=== PATIENT | female | born 1975 | race Caucasian/White ===

== ENCOUNTER → 2016-06-09 | Outpatient (CLI) | payer OTHER ==
[~2016-06-09] MED LIST: COEN100C6 PO; HYDR-5688 PO; MAGN500T15 PO; NITR-5 PO; RIBO100T9 PO; TAMS0.4C38 PO; TOPI200T14 PO; TRAM-10 PO; imitrex PO
--- NOTE | 2016-06-09 15:35 | MAMMOGRAPHY REPORT ---
BILATERAL FIRST EVER DIGITAL SCREENING MAMMOGRAM TOMOSYNTHESIS WITH CAD: 06/09/2016 CLINICAL HISTORY: Routine screening. Baseline exam. TECHNIQUE: Breast tomosynthesis in addition to standard 2D mammography was performed. Current study was also evaluated with a Computer Aided Detection (CAD) system. COMPARISON: No prior exams were available for comparison. BREAST COMPOSITION: There are scattered areas of fibroglandular density in both breasts. FINDINGS: No suspicious masses, calcifications, or areas of architectural distortion are noted in e ither breast. IMPRESSION: ACR BI-RADS CATEGORY 1: NEGATIVE There is no mammographic evidence of malignancy. A 1 year screening mammogram is recommended. The p atient will receive written notification of the results. Approximately 10% of breast cancers are not detected with mammography. A negative mammographic repor t should not delay biopsy if a clinically suggestive mass is present. Yeny Fine M.D. /:06/09/2016 15:27:37 Hydrochloric Area Supervisor: Filomena FORTUNE)([place]), [facility] letter sent: Normal 1/2 BI-RADS Code: ACR BI-RADS Category 1: Negative
== END | disposition home or self-care (01) ==
LOC: C.MAMM 07:33
PROVIDERS: ATTEND Obstetrics & Gynecology
DX: Z12.31 Encounter for screening mammogram for malignant neoplasm of breast (principal)

== ENCOUNTER → 2016-10-06 | Outpatient (CLI) | payer OTHER ==
--- NOTE | 2016-10-06 09:41 | DIAGNOSTIC IMAGING REPORT ---
RIGHT ANKLE MIN 3 VIEWS ROUTINE CLINICAL HISTORY: Right ankle pain. Trauma. COMPARISON: None. DISCUSSION: No acute fractures or dislocations are visualized. There is a tiny corticated ossicle adjacent the medial malleolar tip. This is felt to be old. There is a small plantar calcaneal spur. IMPRESSION: No acute fractures or dislocations identified. Electronically signed by: Jacques White M.D. 10/06/2016 9:40 AM Dictated Date/Time: 10/06/2016 9:39 AM
== END | disposition home or self-care (01) ==
LOC: C.RAD1850 09:23
PROVIDERS: ATTEND Internal Medicine
DX: M25.571 Pain in right ankle and joints of right foot (principal); G89.29 Other chronic pain

== ENCOUNTER 2017-01-22 10:48 | Emergency (ER) | payer OTHER ==
[2016-01-25 16:54] VITALS: O2SAT 100
[~2017-01-22] VITALS: Ht 157.5 cm; Wt 105.1 kg
[~2017-01-22 10:48] MED LIST changes: -HYDR-5688 PO; -NITR-5 PO; -TAMS0.4C38 PO; -TRAM-10 PO
[2017-01-22 10:49] VITALS: Ht 157.5 cm; Wt 105.1 kg
[2017-01-22] MEDS ORDERED: KETOROLAC TROMETHAMINE 30 MG/ML VIAL IV STA (11:11)
[2017-01-22] MEDS ORDERED: ACETAMINOPHEN 500 MG TAB PO STA (11:11)
[2017-01-22] MEDS ORDERED: TRAMADOL HCL 50 MG TAB PO STA (11:11)
[2017-01-22] MEDS ORDERED: SODIUM CHLORIDE 0.9% 1000ML 1,000 ML IV STA (11:11)
--- NOTE | 2017-01-22 11:11 | EMERGENCY ROOM VISIT NOTE ---
History Report prepared by Carly: María Elena Crespo Under the Supervision of: Dr. Kamlesh Hernandez M.D. First contact with patient: 10:54 Chief Complaint: FLANK PAIN Stated Complaint: BACK PAIN-LEFT SIDE-KIDNEY STONE History of Present Illness The patient is a 41 year old white female with a past medical history of kidney stones who presents to the ED with a cc of intermittent left sided flank pain beginning 6 hours ago. Pt states that she was woken from sleep this morning from left flank pain that feels like her previous kidney stones. She reports that she took 3 Aleve and showered and her pain was slightly relieved before returning more severely 1 hour ago. Positive hematuria and nausea. Negative burning with urination, changes with bowel movements, abdominal pain, changes with menstruation, vomiting. She notes that she is on Topamax for a history of migraines. The patient reports that she last had a kidney stone 3 years ago and passed it in the ED. Source of History: patient Onset: 6 hours ago Position: other (left flank) Symptom Intensity: severe Timing: intermittent Modifying Factors (Relieving): other (Aleve and hot water) Associated Symptoms: + nausea, No vomiting, No abdominal pain Note: Positive hematuria. Negative burning with urination, changes with menstruation. Review of Systems See HPI for pertinent positives and negatives. A total of ten systems were reviewed and were otherwise negative. Past Medical & Surgical Medical Problems: (1) Migraine Family History No pertinent family history stated. Social History Smoking Status: Never Smoker Marital Status: Housing Status: lives with significant other Occupation Status: employed Current/Historical Medications Scheduled Coenzyme Q10 (Ubidecarenone) (Co-Enzyme Q10), 200 MG PO DAILY Magnesium (Magnesium), 500 MG PO DAILY Nitrofurantoin Monohyd Macrocr (Macrobid), 100 MG PO BID Riboflavin (Vitamin B-2), 400 MG PO DAILY Tamsulosin Hcl (Flomax), 1 CAP PO DAILY Topiramate (Topamax), 200 MG PO BID Scheduled PRN Hydrocodone/Acetaminophen 5MG/325MG ([place] 5MG/325MG), 1 TABLET PO Q8H PRN for Pain Tramadol (Ultram), 50 MG PO Q8H PRN for Pain [imitrex], 1 TABLET PO UD PRN Allergies Coded Allergies: Penicillins (Verified Allergy, Intermediate, RASH, 01/22/17) Physical Exam Vital Signs Date Time Temp Pulse Resp B/P (MAP) Pulse Ox O2 Delivery O2 Flow Rate FiO2 01/22/17 13:56 36.9 81 18 121/77 98 01/22/17 13:35 81 18 121/77 98 Room Air 01/22/17 12:27 81 18 126/78 98 Room Air 01/22/17 10:49 36.9 84 18 131/92 98 Room Air Physical Exam GENERAL: Awake, alert, obese, well-appearing, NAD HENT: Normocephalic, atraumatic. EYES: Normal conjunctiva. Sclera non-icteric. NECK: Supple. No nuchal rigidity. FROM. RESPIRATORY: CTAB, no rhonchi, wheezing, crackles CARDIAC: RRR, no MRG ABDOMEN: Soft, NTND, BS+ MSK: No chest wall TTP, no LE edema, no left CVA tenderness to palpation, no abdominal pain, no evidence of ecchymosis or trauma to abdomen or back NEURO: GCS 15, CN 2-12 intact, moves all 4s on command SKIN: No rash or jaundice noted. Medical Decision & Procedures ER Provider Diagnostic Interpretation: Radiology results as stated below per my review and radiologist interpretation: RENAL ULTRASOUND FINDINGS: The right kidney measures 12 x 5.3 x 5.9 cm and the left measures 11.8 x 6.5 x 6.3 cm. There is no right hydronephrosis. Note is made of mild left hydronephrosis. There is a possible 5 mm calculus within the lower pole the left kidney. Both ureteral jets were identified. IMPRESSION: 1. Mild left hydronephrosis and trace left perinephric fluid. 2. Possible 5 mm left renal calculus. No ureteral identified although these may be occult by sonography. 3. Both ureteral jets identified. Electronically signed by: Jed Wilde M.D. 01/22/2017 12:10 PM Dictated Date/Time: 01/22/2017 12:09 PM Laboratory Results 01/22/17 11:15 Red Blood Count 5.06, Mean Corpuscular Volume 87.5, Mean Corpuscular Hemoglobin 28.5, Mean Corpuscular Hemoglobin Concent 32.5, Mean Platelet Volume 9.4, Neutrophils (%) (Auto) 72.3, Lymphocytes (%) (Auto) 21.4, Monocytes (%) (Auto) 4.5, Eosinophils (%) (Auto) 1.4, Basophils (%) (Auto) 0.2, Neutrophils # (Auto) 6.30, Lymphocytes # (Auto) 1.87, Monocytes # (Auto) 0.39, Eosinophils # (Auto) 0.12, Basophils # (Auto) 0.02 01/22/17 11:15 Test 01/22/17 11:00 01/22/17 11:15 Urine Color YELLOW Urine Appearance CLOUDY (CLEAR) Urine pH 7.0 (4.5-7.5) Urine Specific [place] 1.023 (1.000-1.030) Urine Protein TRACE (NEG) Urine Glucose (UA) NEG (NEG) Urine Ketones NEG (NEG) Urine Occult Blood 3+ (NEG) Urine Nitrite NEG (NEG) Urine Bilirubin NEG (NEG) Urine Urobilinogen NEG (NEG) Urine Leukocyte Esterase MODERATE (NEG) Urine WBC (Auto) >30 /hpf (0-5) Urine RBC (Auto) >30 /hpf (0-4) Urine Hyaline Casts (Auto) 10-30 /lpf (0-5) Urine Epithelial Cells (Auto) >30 /lpf (0-5) Urine Bacteria (Auto) 4+ (NEG) Urine Crystals CALCIUM OXALATE (NONE Urine Pathogenic Casts /lpf (0) Urine Mucus PRESENT (NONE PRSENT) White Blood Count 8.72 K/uL (4.8-10.8) Red Blood Count 5.06 M/uL (4.2-5.4) Hemoglobin 14.4 g/dL (12.0-16.0) Hematocrit 44.3 % (37-47) Mean Corpuscular Volume 87.5 fL (80-100) Mean Corpuscular Hemoglobin 28.5 pg (25-34) Mean Corpuscular Hemoglobin Concent 32.5 g/dl (32-36) Platelet Count 261 K/uL (130-400) Mean Platelet Volume 9.4 fL (7.4-10.4) Neutrophils (%) (Auto) 72.3 % Lymphocytes (%) (Auto) 21.4 % Monocytes (%) (Auto) 4.5 % Eosinophils (%) (Auto) 1.4 % Basophils (%) (Auto) 0.2 % Neutrophils # (Auto) 6.30 K/uL (1.4-6.5) Lymphocytes # (Auto) 1.87 K/uL (1.2-3.4) Monocytes # (Auto) 0.39 K/uL (0.11-0.59) Eosinophils # (Auto) 0.12 K/uL (0-0.5) Basophils # (Auto) 0.02 K/uL (0-0.2) RDW Standard Deviation 42.6 fL (36.4-46.3) RDW Coefficient of Variation 13.4 % (11.5-14.5) Immature Granulocyte % (Auto) 0.2 % Immature Granulocyte # (Auto) 0.02 K/uL (0.00-0.02) Anion Gap 7.0 mmol/L (3-11) Est Creatinine Clear Calc Drug Dose 86.0 ml/min Estimated GFR () 82.6 Estimated GFR (Non- 71.3 BUN/Creatinine Ratio 17.3 (10-20) Calcium Level 8.5 mg/dl (8.5-10.1) Human Chorionic Gonadotropin, Quant < 1 mIU/mL Laboratory results reviewed by me Medications Administered Medications (Trade) Dose Ordered Sig/Reggie Route Start Time Stop Time Status Last Admin Dose Admin Sodium Chloride 1,000 ml @ 999 mls/hr Q1H1M STAT IV 01/22/17 11:11 01/22/17 12:11 DC 01/22/17 11:26 999 MLS/HR Ketorolac Tromethamine (Toradol Inj) 30 mg NOW STAT IV 01/22/17 11:11 01/22/17 11:14 DC 01/22/17 11:26 30 MG Acetaminophen (Tylenol Tab) 1,000 mg NOW STAT PO 01/22/17 11:11 01/22/17 11:14 DC 01/22/17 11:27 1,000 MG Tramadol HCl (Ultram Tab) 25 mg NOW STAT PO 01/22/17 11:11 01/22/17 11:14 DC 01/22/17 11:28 25 MG Ceftriaxone Sodium (Rocephin Inj) 1 gm NOW STAT IV 01/22/17 13:10 01/22/17 13:12 DC 01/22/17 13:26 1 GM ED Course 1054: The patient was evaluated in room C4. A complete history and physical exam was performed. 1239: I reevaluated and updated the patient. 1315: I reevaluated the patient. Discussed results and discharge instructions: She verbalized understanding and agreement. The patient is ready for discharge. Medical Decision The patient is a 41 year old white female with a past medical history of kidney stones who presents to the ED with a cc of intermittent left sided flank pain beginning 6 hours ago. Differential diagnosis: Etiologies such as renal colic, appendicitis, diverticulitis, mesenteric ischemia, aortic pathology, infections, inflammatory bowel disease, PUD, biliary pathology, UTI, as well as others were entertained. Patient was seen and evaluated at the bedside. Patient's complaint was consistent with likely kidney stone. Patient does not have any history of present illness the patient's urine was concerning for blood as well as infection. Patient did have an ultrasound was completed which did show a question of a 5 mm stone but she had bilateral ureteral jets so unlikely to be obstructive given that and the fact the patient has no history of present illness. Patient's pain was improved and had no nausea or vomiting since arrival. Patient was given appropriate medical management for home and follow up with urology as needed. Patient was given strict follow-up, discharge, and return precautions. Patient had prescriptions sent for UTI. Patient was given Rocephin here. Patient discharged home. Medication Reconcilliation Current Medication List: was personally reviewed by me Blood Pressure Screening Patient's blood pressure: Elevated blood pressure Blood pressure disposition: Elevated BP felt to be situational Impression Primary Impression: UTI (urinary tract infection) Additional Impression: Nephrolithiasis Scribe Attestation The scribe's documentation has been prepared under my direction and personally reviewed by me in its entirety. I confirm that the note above accurately reflects all work, treatment, procedures, and medical decision making performed by me. Departure Information Dispostion Home / Self-Care Prescriptions Nitrofurantoin Monohyd Macrocr (Macrobid) 100 Mg Cap 100 MG PO BID for 7 Days, #14 CAP Prov: Kamlesh Hernandez M.D. 01/22/17 Hydrocodone/Acetaminophen 5MG/325MG ([place] 5MG/325MG) Tab 1 TABLET PO Q8H Y for Pain, #9 TAB Prov: Kamlesh Hernandez M.D. 01/22/17 Tamsulosin Hcl (FLOMAX) 0.4 Mg Cap 1 CAP PO DAILY for 30 Days, #30 CAP 0 Refills Prov: Kamlesh Hernandez M.D. 01/22/17 Tramadol (Ultram) 50 Mg Tab 50 MG PO Q8H Y for Pain, #15 TAB Prov: Kamlesh Hernandez M.D. 01/22/17 Referrals Saúl Irwin M.D. (PCP) Emilia Liu MD Forms HOME CARE DOCUMENTATION FORM, IMPORTANT VISIT INFORMATION Patient Instructions Kidney Stone Urine, Kidney Stones - [facility] Additional Instructions Please return to the emergency department if you have worsening or recurrent symptoms not amenable to at-home treatment. Please call for a follow-up appointment with her primary care physician. Please take your medications as prescribed. If you have other concerns and/or complaints please feel free to also call your primary care physician's office or return the ED for further evaluation, management, and treatment. You were found to have an elevated blood pressure today (>120 sytolic or >90 diastolic). Per medicare guidelines, you need to follow up with this blood pressure screening with your Primary Care Physician (PCP). For a new PCP call [phone]. You received narcotic or benzodiazepene medication while in the emergency room today. This is an addictive medication that may cause drowziness as well as constipation. Do not drive, operate heavy machinery, or drink alcohol under the influence of this medication. Tramadol may cause similar symptoms but is not habit forming and a non-narcotic. Take 600 mg Ibuprofen every 6 hours with food for two days. Please take with food. 1000mg of tylenol every 6 hours for pain. Take [place] for breakthrough pain You have been examined and treated today on an emergency basis only. This is not a substitute for, or an effort to provide, complete comprehensive medical care. It is impossible to recognize and treat all injuries or illnesses in a single emergency department visit. It is therefore important that you follow up closely with [facility]. Call as soon as possible for an appointment. Thank you for your time and consideration. I look forward to speaking with you again soon. Please don't hesitate to call us if you have any questions. Problem Qualifiers Primary Impression: UTI (urinary tract infection) Urinary tract infection type: acute cystitis Hematuria presence: with hematuria Qualified Codes: N30.01 - Acute cystitis with hematuria
[2017-01-22 11:26] LABS: BASO % 0.2 %; BASO ABS # 0.02 K/uL (0-0.2); COMPLETE YES; EOS % 1.4 %; HEMATOCRIT 44.3 % (37-47); IG% 0.2 %; LYMPH % 21.4 %; LYMPH ABS # 1.87 K/uL (1.2-3.4); MEAN CELL VOLUME 87.5 fL (80-100); MEAN CORPUSCULAR HEMOGLOBIN 28.5 pg (25-34); MEAN CORPUSCULAR HGB CONC 32.5 g/dl (32-36); MEAN PLATELET VOLUME 9.4 fL (7.4-10.4); MONO % 4.5 %; NEUT % 72.3 %; PLATELET COUNT 261 K/uL (130-400); RED BLOOD COUNT 5.06 M/uL (4.2-5.4); WHITE BLOOD COUNT 8.72 K/uL (4.8-10.8)
[2017-01-22 11:42] LABS: BUN/CREATININE RATIO 17.3 (10-20); CALCIUM 8.5 mg/dl (8.5-10.1); CREATININE 0.99 mg/dl (0.60-1.20); POTASSIUM 3.7 mmol/L (3.5-5.1)
[2017-01-22 12:04] LABS: URINE APPEARANCE CLOUDY (CLEAR); URINE BILIRUBIN NEG (NEG); URINE COLOR YELLOW; URINE EPITHELIAL CELL AUTO >30 /lpf (0-5); URINE NITRITE NEG (NEG); URINE SPECIFIC GRAVITY 1.023 (1.000-1.030); UROBILINOGEN NEG (NEG); ZZUR CULT IF INDIC CLEAN CATCH YES
[2017-01-22 12:05] LABS: MANUAL MICROSCOPIC REQUIRED? NO; REVIEW REQ? YES
--- NOTE | 2017-01-22 12:12 | DIAGNOSTIC IMAGING REPORT ---
RENAL ULTRASOUND CLINICAL HISTORY: Left flank pain and hematuria. History of nephrolithiasis. COMPARISON STUDY: KUB February 18, 2013. TECHNIQUE: Sonography of the kidneys and the urinary bladder was performed. FINDINGS: The right kidney measures 12 x 5.3 x 5.9 cm and the left measures 11.8 x 6.5 x 6.3 cm. There is no right hydronephrosis. Note is made of mild left hydronephrosis. There is a possible 5 mm calculus within the lower pole the left kidney. Both ureteral jets were identified. IMPRESSION: 1. Mild left hydronephrosis and trace left perinephric fluid. 2. Possible 5 mm left renal calculus. No ureteral identified although these may be occult by sonography. 3. Both ureteral jets identified. Electronically signed by: Jed Wilde M.D. 01/22/2017 12:10 PM Dictated Date/Time: 01/22/2017 12:09 PM
[2017-01-22 12:29] LABS: URINE MUCUS PRESENT (NONE PRSENT)
[2017-01-22] MEDS ORDERED: TRAM-10 PO (13:04)
[2017-01-22] MEDS ORDERED: TAMS0.4C38 PO (13:04)
[2017-01-22] MEDS ORDERED: HYDR-5688 PO (13:04)
[2017-01-22] MEDS ORDERED: CEFTRIAXONE SOD INJ 1 GM ADDVIAL IV STA (13:10)
[2017-01-22] MEDS ORDERED: NITR-5 PO (13:14)
[2017-01-22 13:56] VITALS: BP 121/77; PULSE 81; TEMP 36.9; O2SAT 98
== END 2017-01-22 13:57 | disposition home or self-care (01) ==
LOC: C.EDB 10:49 → C.EDC 13:57
DX: N39.0 Urinary tract infection, site not specified (principal); N13.2 Hydronephrosis with renal and ureteral calculous obstruction; Z79.899 Other long term (current) drug therapy; Z87.442 Personal history of urinary calculi

== ENCOUNTER → 2017-01-25 | Outpatient (CLI) | payer OTHER ==
[~2017-01-25] MED LIST changes: +HYDR-5688 PO; +NITR-5 PO; +TAMS0.4C38 PO; +TRAM-10 PO
--- NOTE | 2017-01-25 16:12 | DIAGNOSTIC IMAGING REPORT ---
CT OF THE ABDOMEN AND PELVIS WITHOUT CONTRAST CLINICAL HISTORY: Nephrolithiasis. COMPARISON STUDY: Renal ultrasound January 22, 2017. TECHNIQUE: Axial images of the abdomen and pelvis were obtained without IV contrast. Images were reviewed in the axial, sagittal, and coronal planes. A dose lowering technique was utilized adhering to the principles of ALARA. FINDINGS: Lung bases are clear. Note is made of a 4 mm calculus within the lower pole of the left kidney. There are no ureteral calculi. No hydronephrosis is present. Evaluation of the remainder of the abdomen and pelvis is suboptimal on this unenhanced exam. Unenhanced images of the liver, spleen, adrenal glands and pancreas are normal. There is no evidence for a bowel obstruction. The appendix is normal. There is no adenopathy or ascites. No suspicious skeletal lesions are present. IMPRESSION: 1. 4 mm left renal calculus. No ureteral calculi or hydronephrosis. 2. No acute process within the abdomen or pelvis on unenhanced exam. Electronically signed by: Jed Wilde M.D. 01/25/2017 4:11 PM Dictated Date/Time: 01/25/2017 4:05 PM
== END | disposition home or self-care (01) ==
LOC: C.CTS 15:53
PROVIDERS: ATTEND Urology
DX: N20.0 Calculus of kidney (principal)

== ENCOUNTER → 2017-02-20 | Outpatient (CLI) | payer OTHER ==
[~2017-02-20] MED LIST changes: -NITR-5 PO
--- NOTE | 2017-02-20 09:46 | DIAGNOSTIC IMAGING REPORT ---
KUB CLINICAL HISTORY: Nephrolithiasis. Left flank pain. FINDINGS: 2 AP supine abdominal radiographs are compared to study dated 02/08/2013 and correlated with abdominal CT dated 01/25/2017. A 3 mm nonobstructing calculus projecting over the lower pole of left kidney is unchanged. No calcifications are seen projecting over the right kidney or along the course of the ureters. A phlebolith in left hemipelvis is unchanged from prior studies. There is a nonobstructed abdominal bowel gas pattern. Moderate colonic fecal retention is observed. The bony structures appear intact. IMPRESSION: A nonobstructing left renal calculus is unchanged. Electronically signed by: Jona Pratt M.D. 02/20/2017 9:45 AM Dictated Date/Time: 02/20/2017 9:44 AM
== END | disposition home or self-care (01) ==
LOC: C.RAD1850 09:19
PROVIDERS: ATTEND Urology
DX: N20.0 Calculus of kidney (principal); R10.9 Unspecified abdominal pain

== ENCOUNTER → 2017-06-01 | Outpatient (CLI) | payer OTHER | END | disposition home or self-care (01) | LOC: C.PAPS 11:31 | PROVIDERS: ATTEND Obstetrics & Gynecology | DX: Z12.4 Encounter for screening for malignant neoplasm of cervix (principal) ==

== ENCOUNTER → 2017-07-24 | Outpatient (CLI) | payer OTHER ==
--- NOTE | 2017-07-24 13:15 | DIAGNOSTIC IMAGING REPORT ---
KUB CLINICAL HISTORY: 42 years-old Female presenting with N20.0 [id number]. TECHNIQUE: Single supine view of the abdomen was obtained. COMPARISON: 02/20/[address] from 01/25/2017. FINDINGS: Nonobstructive bowel gas pattern. No gross pneumoperitoneum. Allowing for bowel gas and stool, calcification projects over the lower pole of the left kidney consistent with calculus. Questionable additional interpolar left renal calculus and right upper pole calculus. No ureteral calculi. Stable distribution of pelvic phleboliths. Osseous structures normal. IMPRESSION: 1. Left nephrolithiasis. Questionable additional left and right renal calculi. No ureteral calculi. Electronically signed by: Faustino Avalos M.D. 07/24/2017 1:14 PM Dictated Date/Time: 07/24/2017 1:12 PM
== END | disposition home or self-care (01) ==
LOC: C.RAD1850 13:05
PROVIDERS: ATTEND Urology
DX: N20.0 Calculus of kidney (principal)

== ENCOUNTER → 2017-09-19 | Outpatient (CLI) | payer OTHER ==
[~2017-09-19] MED LIST changes: -HYDR-5688 PO; -TRAM-10 PO
--- NOTE | 2017-09-19 15:22 | MAMMOGRAPHY REPORT ---
BILATERAL DIGITAL SCREENING MAMMOGRAM TOMOSYNTHESIS WITH CAD: 09/19/2017 CLINICAL HISTORY: Routine screening. Patient has no complaints. TECHNIQUE: Breast tomosynthesis in addition to standard 2D mammography was performed. Current study was also evaluated with a Computer Aided Detection (CAD) system. COMPARISON: Comparison is made to exam dated: 06/09/2016 mammogram - [facility]. BREAST COMPOSITION: There are scattered areas of fibroglandular density in both breasts. FINDINGS: The parenchymal pattern is unchanged. There are a few stable scattered and loosely groupe d round and punctate benign-appearing microcalcifications in the left upper outer quadrant. No devel oping mass, architectural distortion or cluster of suspicious microcalcifications is seen in either b reast. IMPRESSION: ACR BI-RADS CATEGORY 2: BENIGN There is no mammographic evidence of malignancy. A 1 year screening mammogram is recommended. The pa tient will receive written notification of the results. Approximately 10% of breast cancers are not detected with mammography. A negative mammographic report should not delay biopsy if a clinically suggestive mass is present. Caroline Lucio M.D. ay/:09/19/2017 15:11:39 Kitchen Aide: Emmanuelle BOSS(Fabiola)([place]), [facility] letter sent: Normal 1/2 BI-RADS Code: ACR BI-RADS Category 2: Benign
== END | disposition home or self-care (01) ==
LOC: C.MAMM 07:30
PROVIDERS: ATTEND Obstetrics & Gynecology
DX: Z12.31 Encounter for screening mammogram for malignant neoplasm of breast (principal)